=== PATIENT | female | born 1985 | race Caucasian/White ===

== ENCOUNTER 2016-11-25 09:49 | Inpatient (IN) ==
[2016-11-25] MEDS ORDERED: Ondansetron 4 MG/2 ML VIAL IVP PRN ×2 (10:14→16:27)
[2016-11-25] MEDS ORDERED: Metoclopramide 10 MG/2 ML VIAL IVP ONE (10:14)
[2016-11-25] MEDS ORDERED: CeFAZolin Pre 3,000 MG/100 ML 3,000 MG/100 ML BAG IVPB ONE (10:14)
[2016-11-25] MEDS ORDERED: Ringers Solution, Lactated 1,000 ML IVC ONE (10:14)
[2016-11-25] MEDS ORDERED: Famotidine 20 MG/2 ML VIAL IVP PRN (10:14)
[2016-11-25] MEDS ORDERED: Naloxone 0.4 MG/ML INJ IVP PRN (10:14)
[2016-11-25] MEDS ORDERED: Oxytocin 20 units/ LR 1000 mL 20 UNIT/1,000 ML BAG IVC SCH ×2 (10:15→16:27)
[2016-11-25] MEDS ORDERED: Ringers Solution, Lactated 1,000 ML IVC SCH ×2 (10:15→16:27)
[2016-11-25] MEDS ORDERED: Ringers Solution, Lactated 1,000 ML ONE ×2 (10:20→12:34)
[2016-11-25 10:29] LABS: Basophils # 0.1 K/mcL (0.0-0.2); Basophils % 0.4 %; Eosinophils # 0.3 K/mcL (0.0-0.6); Eosinophils % 2.2 %; Hematocrit 36.2 % (35.3-44.9); Immature Granulocytes % 1.5 % (0-4); Lymphocytes # 3.4 K/mcL (0.6-4.6); Lymphocytes % 26.6 %; Mean Corpuscular HGB Conc 33.1 g/dL (31.6-35.5); Mean Corpuscular Hemoglobin 28.9 pg (28.0-33.3); Mean Corpuscular Volume 87.2 fL (83.0-100.0); Mean Platelet Volume 11.1 fL (9.4-12.4); Monocytes % 8.1 %; Neutrophils # 7.8 K/mcL (1.6-8.9); Platelet Count 202 K/mcL (140-400); Red Blood Count 4.15 M/mcL (3.82-4.97); Red Cell Distribution Width 14.7 % (11.5-14.5); Segmented Neutrophils % 61.2 %
[2016-11-25] MEDS ORDERED: *HR* Phenylephrine 10 MG/ML VIAL ONE (10:52)
[2016-11-25] MEDS ORDERED: *HR* Morphine Sulfate/PF 5 MG/10 ML AMPUL ONE (10:52)
[2016-11-25] MEDS ORDERED: *HR* FentaNYL (PF) 100 MCG/2 ML VIAL ONE (10:52)
[2016-11-25] MEDS ORDERED: *HR* Oxytocin 10 UNIT/ML VIAL IM ONE (11:00)
--- NOTE | 2016-11-25 11:46 | Anesthesia Evaluation PreOp ---
Date of Encounter: 11/25/16 Time of Encounter: 11:45 - Past History Planned Operation: Repeat C Section Cardiac History: Denies any Significant Hx Pulmonary History: Denies Any Significant HX CRIMINAL RESEARCH SPECIALIST History: Denies Any Significant HX Other Medical History: Other (Morbid Obesity) Anesthesia History: No Prior Anesthetic Complications, Past Anesthesia (C Section X2) : Yes () Alcohol Use: none Drug use: none Medications and Allergies Loratadine [Claritin] 10 mg PO DAILY 09/23/15 [History] Tablet 1 tab PO DAILY 09/23/15 [History] Ranitidine HCl [Zantac 75] 150 mg PO BID 09/23/15 [History] Allergies Sulfa (Sulfonamide Antibiotics) Allergy (Verified 09/23/15 15:12) Rash - Meds/Allergy Pre-op Review Medications Reviewed: Yes Allergies Reviewed: Yes Beta Blockers on Current Med List: No Anesthesia Results - Labs 11/25/16 10:05 Laboratory Tests 10/30/16 11/25/16 19:12 10:05 Hgb 12.0 Hct 36.2 Plt Count 202 Sodium 139 Potassium 3.8 BUN 4 L Creatinine 0.52 L Anesthesia Exam O2 Sat Height 1.6 m Height 1.6 m Weight 114.9 kg Weight 114.9 kg Height: 5'3 Weight: 253 lbs NPO (# of Hours): MN Pain Scale: 0 - HEENT Pupil (Motor): Pupils equal Mallampati: II Teeth: Normal Oral Opening: Greater than 3 - CRIMINAL RESEARCH SPECIALIST LOC: Oriented CRIMINAL RESEARCH SPECIALIST Motor: Normal RUE, Normal LUE, Normal RLE, Normal LLE, Normal Face CRIMINAL RESEARCH SPECIALIST Sensory: Normal: RUE, LUE, RLE, LLE, Face - Cardiac Rhythm: Regular Murmur: None JVD: No Carotid Bruit: No - Pulmonary Breath Sounds: bilateral Clear Respiratory Effort: Symmetrical Anesthesia Assess/Plan ASA Score: 3 (MO) Modified [place] Scale for Level of Consciousness: Cooperative, oriented, and tranquil Anesthetic Plan: Regional Monitoring Plan: Standard Monitors Recovery Plan: PACU (Discussed SAB, possible GA, agrees to proceed)
--- NOTE | 2016-11-25 11:46 | OB/GYN History & Physical ---
Date of Encounter: 11/25/16 Time of Encounter: 11:39 Assessment and Plan (1) 39 weeks gestation of Current visit: Yes Status: Acute Admit to L&D for scheduled repeat LTCS with Dr Jones Routine section orders POC per consult with Dr Jones. History of Present Illness Chief complaint: Scheduled repeat C/S HPI: Ms. Baldwin is a 31 year old at 39 weeks and 3 days gestation that presents to labor and delivery for a scheduled repeat . She has a history of 2 previous cesareans (2012 & ), migraines, palpitations, OSVALDO, and an allergy to Sulfa. She is GBS negative. She is RPR negative, Hepatitis B negative, HIV negative, and Varicella and Rubella immune per her labs. Her blood type is O+. Past Med Surg Social Fam HX - Past Medical History Medical history: GERD Psychiatric history: no psych history - Past Surgical History Surgical History: - Social History Smoking Status: Never smoker Smokeless Tobacco Status: No Alcohol use: none Drug use: none - Family History Mother Living Status: Still Living Hx Family Cardiac Disorders: No Hx Family Respiratory Disorders: No Hx Family Cancer: No Hx Family GI Disorders: No Hx Family Endocrine Disorder: No Hx Family Neuromuscular Disorders: No Hx Family Neurologic Disorders: No Hx Family HEENT Disorders: No Hx Family Autoimmune Disorders: No Obstetrical History - Pregnancies : 3 Para: 2 Term: 2 : 0 Ab's: 0 Livin Medications and Allergies Loratadine [Claritin] 10 mg PO DAILY 09/23/15 [History] Tablet 1 tab PO DAILY 09/23/15 [History] Ranitidine HCl [Zantac 75] 150 mg PO BID 09/23/15 [History] Allergies Sulfa (Sulfonamide Antibiotics) Allergy (Verified 09/23/15 15:12) Rash Review of System OB All systems PM: reviewed and no additional remarkable complaints except as stated Exam - Constitutional Constitutional: well developed, well nourished, no acute distress - HEENT HEENT: Normocephaly, Mucus Membranes Moist - Neck Neck exam: full ROM, normal inspection - Lungs Respiratory exam: CTAB - Cardiovascular Cardiovascular exam: RRR, +S1, +S2 - Abdomen Abdomen: Present: bowel sounds normal, gravid, non tender - Extremities Extremities exam: normal capillary refill, normal inspection, radial pulses palpable and symetrical Deep Tendon Reflex Grade: 2+ Normal - Uterus Uterus exam: Present: normal size (appropriate for gestation) Results Result Diagrams: 11/25/16 10:05 Abnormal lab results WBC 12.7 K/mcL (4.3-11.1) H 11/25/16 10:05 RDW 14.7 % (11.5-14.5) H 11/25/16 10:05 All other labs normal.
--- NOTE | 2016-11-25 12:39 | Anesthesia Procedures ---
Date of Encounter: 11/25/16 Time of Encounter: 12:37 Procedures: Anesthesia - Epidural/Spinal Patient examined: Yes OB Eval: Gestational age: 39 OB Eval: : 3 OB Eval: Hx Para: 2 OB Eval: Dilated at (cm): 3 OB Eval: Contractions: Non-stressed pattern Consent Obtained: Yes Supplemental Oxygen: None/Room Air Site Prep: Aseptic Technique, Sterile prep and drape, 0.5% Chlorhexidine/Alcohol Patient position: upright Local Anesthetic: Lidocaine 1% Amount of Local Anesthetic used: 3 Interspace Used: L2-L3 Loss of Resistance (KHUSHI): No Blood: No CSF: Yes Paresthesia: No (7 mcg) Spinal Needle Gauge: 25 Spinal Dose: marcaine 12 mg duramorph 0.2 f Procedure: tolerated well, VSS, aseptic thrpoughout Vitals + FHT's: 130/78 76 16 131
[2016-11-25] MEDS ORDERED: Ondansetron 4 MG/2 ML VIAL ONE (12:43)
[2016-11-25] MEDS ORDERED: *HR* HYDROmorphone (PF) 1 MG/ML SYRINGE IVP PRN (13:00)
--- NOTE | 2016-11-25 14:26 | OB/GYN Procedure Note ---
Section - Date of procedure: 11/25/16 Preop diagnosis: desires repeat Post-op diagnosis: same Procedure: section, repeat low transverse Surgeon: Eitan Jones Estimated blood loss (cc): 500 Anesthesiologist: Remington Dumont Stockroom Keeper: Daryl Loya Anesthesia Type: Spinal Disposition: PACU Specimens: Placenta - (s) Infant A Delivery Date: 11/25/16 Infant Delivery Time: 12:55 Presentation: vertex Position: GUERLINE Gender: Female Gram Weight: 3.605 kg at 1 minute: 7 at 5 minutes: 9 Shoulder Dystocia: not encountered Specimens collected: cord blood Placenta: complete extraction Cord: 3 umbilical vessels - Narrative Narrative: Patient's 31-year-old female here today for repeat section she is aware of operative risks and signed appropriate consent. Description procedure: Patient was taken operating room where spinal anesthesia was administered. She was prepped draped in usual sterile fashion. Bladder was drained of clear urine. Scalpel was used to make Pfannenstiel skin incision was sharply taken down the rectus fascia. Fascia was incised the midline fascial incision was extended bilaterally. Peritoneum was entered bluntly and peritoneal incision was extended flap was developed and lower uterine segment. Scalpel was used to make a low transverse uterine section. was delivered from vertex presentation. I did have to use a vacuum for assistance. Cord was clamped and cut and was handed nurse personnel who were in attendance. Placenta was delivered manually uterine cavity was massaged free of all residual tissue. Uterus was closed the Vicryl running lock stitch. Hemostasis was ensured. Fascia was closed 0 Vicryl in running manner. Closed the fascia again irrigation performed hemostasis was ensured skin edges were reapproximated with 4-0 Vicryl. All sponge and instruments counts are correct patient was taken recovery in good condition.
[2016-11-25] MEDS ORDERED: Metoclopramide 10 MG/2 ML VIAL IVP PRN (16:27)
[2016-11-25] MEDS ORDERED: Sennosides 8.6 MG TABLET PO PRN (16:27)
[2016-11-25] MEDS: Ibuprofen 600 MG TABLET PO PRN (20:07)
[2016-11-26 06:20] LABS: Basophils # 0.1 K/mcL (0.0-0.2); Basophils % 0.4 %; Eosinophils # 0.3 K/mcL (0.0-0.6); Eosinophils % 2.6 %; Hematocrit 29.4 % (35.3-44.9); Immature Granulocytes % 0.8 % (0-4); Lymphocytes % 23.1 %; Mean Corpuscular HGB Conc 34.4 g/dL (31.6-35.5); Mean Corpuscular Hemoglobin 29.6 pg (28.0-33.3); Mean Corpuscular Volume 86.2 fL (83.0-100.0); Monocytes # 1.4 K/mcL (0.0-1.3); Monocytes % 10.6 %; Neutrophils # 8.2 K/mcL (1.6-8.9); Platelet Count 164 K/mcL (140-400); Red Blood Count 3.41 M/mcL (3.82-4.97); Red Cell Distribution Width 14.8 % (11.5-14.5); Segmented Neutrophils % 62.5 %
[2016-11-26 06:21] LABS: Hemoglobin 10.1 g/dL (11.5-15.4)
[2016-11-26] MEDS ORDERED: Ringers Solution, Lactated 500 ML IVC ONE (08:17)
--- NOTE | 2016-11-26 08:20 | OB/GYN Progress Note ---
Date of Encounter: 11/26/16 Time of Encounter: 08:18 - Assessment and Plan (1) S/P section Current Visit: Yes Status: Acute Pain well controlled. Lyon in place due to low UOP. Plan for LR bolus this am. Lyon out as soon as UOP is adequate. Await spontaneous void and flatus. Will advance to regular diet this am as pt has good bowel sounds. (2) Mother currently breast-feeding Current Visit: Yes Status: Acute Subjective - Subjective Interval history: Pt reports minimal discomfort this am. Lyon catheter still in place due to low urine output. Pt requesting lyon out and regular diet. Patient reports: appetite normal, pain well controlled, ambulating normally Objective - Vital Signs Latest vital signs: Vital Signs Temp Pulse Pulse Resp BP Pulse Ox 11/26/16 04:20 97.7 F 75 16 112/58 97 11/26/16 01:20 98.9 F 78 16 109/62 97 11/25/16 19:00 98.5 F 88 16 122/64 95 11/25/16 18:00 98.1 F 83 80 16 119/61 97 11/25/16 17:00 98.8 F 84 16 121/59 96 11/25/16 16:30 98.9 F 84 16 121/61 96 11/25/16 16:24 98.2 F 75 16 122/56 99 Intake and Output 11/25/16 11/26/16 11/26/16 23:59 07:59 15:59 Intake Total 1600 / 1600 Output Total 575 / 575 305 / 305 Balance -575 / -575 1295 / 1295 Intake: Oral 1600 / 1600 Output: Urine 180 / 180 Catheter 575 / 575 125 / 125 Other: Stool Characteristics Normal for Patient Weight 111.584 kg 112.355 kg Patient Weight 11/26/16 23:59 Weight 112.355 kg - Exam Lungs: bilateral: normal Chest: Normal S1, Normal S2 Extremities: Present: edema (mild edema bilaterally) Abdomen: Present: soft Incision: Present: dressed (dressing dry and intact) Uterus: Present: firm - Labs Labs: Laboratory Results - last 24 hr 11/25/16 11/26/16 10:05 06:14 WBC 12.7 H 13.1 H RBC 4.15 3.41 L Hgb 12.0 10.1 L D Hct 36.2 29.4 L MCV 87.2 86.2 MCH 28.9 29.6 MCHC 33.1 34.4 RDW 14.7 H 14.8 H Plt Count 202 164 MPV 11.1 11.0 Immature Gran % 1.5 0.8 Seg Neutrophils % 61.2 62.5 Lymphocytes % 26.6 23.1 Monocytes % 8.1 10.6 Eosinophils % 2.2 2.6 Basophils % 0.4 0.4 Neutrophils # 7.8 8.2 Lymphocytes # 3.4 3.0 Monocytes # 1.0 1.4 H Eosinophils # 0.3 0.3 Basophils # 0.1 0.1
[2016-11-26] MEDS: Prenatal Vit/FA 1 EACH TABLET PO SCH (08:24)
[2016-11-26] MEDS: Loratadine 10 MG TABLET PO SCH (08:24)
[2016-11-26] MEDS ORDERED: Prenatal Vit/FA 1 EACH TABLET PO SCH (09:00)
[2016-11-26] MEDS ORDERED: Lanolin 7 G OINT...G. TP PRN (12:15)
[2016-11-26] MEDS: Simethicone 80 MG TAB.CHEW PO PRN (12:26)
[2016-11-26] MEDS: *HR* OxyCODONE/APAP 5/325 TABLET PO PRN (17:05)
[2016-11-26] MEDS: Ibuprofen 600 MG TABLET PO PRN (21:45)
[2016-11-27] MEDS: *HR* OxyCODONE/APAP 5/325 TABLET PO PRN ×2 (01:28→09:42)
[2016-11-27] MEDS: Simethicone 80 MG TAB.CHEW PO PRN ×2 (01:30→09:42)
--- NOTE | 2016-11-27 08:34 | Discharge Summary ---
Date of Encounter: 11/27/16 Time of Encounter: 08:29 - Discharge Diagnosis (1) S/P section Priority: Primary Status: Acute Comments: Pt feels well. Pain well managed on po medication Desires discharge. - Discharge Medications Prescriptions: OxyCODONE/APAP 5/325 [Percocet 5/325 MG] 1 each PO Q4HR PRN #20 tab PRN Reason: Moderate pain 4-6 Home Medications: Loratadine [Claritin] 10 mg PO DAILY 09/23/15 [History] Tablet 1 tab PO DAILY 09/23/15 [History] Ranitidine HCl [Zantac 75] 150 mg PO BID 09/23/15 [History] OxyCODONE/APAP 5/325 [Percocet 5/325 MG] 1 each PO Q4HR PRN #20 tab 11/27/16 [Rx ] Allergies/Adverse Reactions: Allergies Sulfa (Sulfonamide Antibiotics) Allergy (Verified 09/23/15 15:12) Rash Data Procedures and tests throughout hospitalization: Laboratory Tests 11/25/16 11/26/16 10:05 06:14 WBC 12.7 H 13.1 H RBC 4.15 3.41 L Hgb 12.0 10.1 L D Hct 36.2 29.4 L MCV 87.2 86.2 MCH 28.9 29.6 MCHC 33.1 34.4 RDW 14.7 H 14.8 H Plt Count 202 164 MPV 11.1 11.0 Immature Gran % 1.5 0.8 Seg Neutrophils % 61.2 62.5 Lymphocytes % 26.6 23.1 Monocytes % 8.1 10.6 Eosinophils % 2.2 2.6 Basophils % 0.4 0.4 Neutrophils # 7.8 8.2 Lymphocytes # 3.4 3.0 Monocytes # 1.0 1.4 H Eosinophils # 0.3 0.3 Basophils # 0.1 0.1 Date of admission: 11/25/16 09:49 Primary care physician: Ivan Jones Discharging clinician: Veronique Salcedo Anticipated date of discharge: 11/27/16 - Patient Status Disposition: Home, Self-Care Condition: Good Functional capacity at discharge: independent ambulation Overall status at discharge: patient is back to baseline - Discharge Instructions Follow Up With: Debi Oneill, ANA LUISA [Primary Care Provider] - Eitan Jones MD [Partnered Physician] - - Diet and Activity Activity: ambulate only with your walker Diet: regular diet Hospital Course Reason for admission: section Delivery: section Episiotomy: none Laceration: none Other procedures: none complications: none Discharge diagnosis: IUP at term delivered [place] baby: female Hospital course: Section - Date of procedure: 11/25/16 Preop diagnosis: desires repeat Post-op diagnosis: same Procedure: section, repeat low transverse Surgeon: Eitan Jones Estimated blood loss (cc): 500 Anesthesiologist: Remington Dumont Senior Integration Architect: Daryl Loya Anesthesia Type: Spinal Disposition: PACU Specimens: Placenta - Infant (s) Infant A Infant Delivery Date: 11/25/16 Delivery Time: 12:55 Presentation: vertex Position: GUERLINE Gender: Female Gram Weight: 3.605 kg at 1 minute: 7 at 5 minutes: 9 Shoulder Dystocia: not encountered Specimens collected: cord blood Placenta: complete extraction Cord: 3 umbilical vessels Stable in and appropriate for discharge Time Attestation: Total time spent providing and/or coordinating discharge services: Time Spent: Less than 30 minutes - VTE Documentation of Mechanical Device: Intermittent pneumatic compression device Exam - Constitutional Vitals: Temp Pulse Resp BP Pulse Ox 98.3 F 73 16 117/64 97 11/26/16 21:00 11/26/16 21:00 11/26/16 21:00 11/26/16 21:00 11/26/16 21:00 General appearance IM: A&O X 3 - Respiratory Respiratory exam: Present: CTAB - Cardiovascular Cardiovascular exam IM: Present: RRR, +S1, +S2 - GI/Abdominal GI/Abdominal exam IM: normal bowel sounds, soft Incision: normal - Uterine Tone: Firm Uterus Position: At Umbilicus - Extremities Exam Extremities exam IM: Present: normal capillary refill, normal inspection - Neurological Exam Neurological exam: normal gait, oriented X3 - Psychiatric Additional comments: reports good mood.
[2016-11-27 08:41] VITALS: BP 121/66
[2016-11-27] MEDS: Prenatal Vit/FA 1 EACH TABLET PO SCH (09:41)
[2016-11-27] MEDS: Loratadine 10 MG TABLET PO SCH (09:42)
== END 2016-11-27 11:30 | disposition home or self-care (01) | DRG 765 ==
LOC: 1NENULAB 09:49 → 1NENUOBS 16:19
PROVIDERS: ADMIT Obstetrics & Gynecology; ATTEND Obstetrics & Gynecology